=== PATIENT | male | born 1955 | race Caucasian/White ===

== ENCOUNTER 2021-10-11 18:27 | Emergency (ER) | payer MEDICARE, OTHER | END 2021-10-11 21:35 | disposition home or self-care (01) | LOC: FER 18:27 | DX: M54.6 Pain in thoracic spine (principal); I10 Essential (primary) hypertension; Z28.310 Unvaccinated for COVID-19 | CPT/HCPCS: 99281; J1885 ==

== ENCOUNTER → 2022-03-14 | Day surgery (SDC) | payer MEDICARE ==
[~2022-03-14] VITALS: Ht 182.9 cm; Wt 63.5 kg
[~2022-03-14] MED LIST: GABAPENTIN250 MG/5 M PO; HYDROCODON-ACE1 EAC6 PO; NEURONTIN300 MG PO; NORCO 5-325 TA1 EACH PO; ONDANSETRON ODT8 MG PO; PENTOXIFYLLINE400 M1 PO; PRILOSEC20 MG PO
[2022-03-14 07:42] LABS: HCT 44.8 % (42.0-52.0); HGB 14.7 g/dl (13.2-18.0); MCH 35.3 pg (25.0-31.0); MCHC 32.8 g/dL (32.0-36.0); MCV 107.4 fL (78.0-100.0); MPV 9.3 fL (6.0-9.5); RBC 4.17 M/uL (4.70-6.00); RDW 14.6 % (11.5-14.0); WBC 8.4 K/uL (4.0-10.5)
[2022-03-14 08:04] LABS: ALBUMIN 3.4 g/dL (3.4-5.0); BILIRUBIN - TOTAL 0.3 mg/dL (0.2-1.0); BUN/CREAT RATIO (CALC) 25.5 RATIO; CREATININE 0.55 mg/dL (0.67-1.17); GLOBULIN (CALCULATION) 4.3 g/dL; POTASSIUM 4.1 mmol/L (3.5-5.1); TOTAL PROTEIN 7.7 g/dL (6.4-8.2)
== END | disposition home or self-care (01) ==
LOC: FAS 07:09
PROVIDERS: Surgery
DX: K40.30 Unilateral inguinal hernia, with obstruction, without gangrene, not specified as recurrent (principal); I10 Essential (primary) hypertension
CPT/HCPCS: 36415; 80053; 93005; C1727; C1781; J0690; J1100; J2001; J2250; J2370; J2405; J2704; J2710; J3010; J7120